=== PATIENT | female | born 1955 | race Hispanic/Latino ===

== ENCOUNTER 2019-01-20 19:19 | Inpatient (IN) | payer MEDICARE, OTHER ==
[~2019-01-20] VITALS: Ht 149.9 cm; Wt 102.2 kg
[2019-01-20] MEDS ORDERED: SODIUM CHLORIDE 0.9% 1000ML 1,000 ML IV STA (20:04)
--- NOTE | 2019-01-20 20:21 | NUR ---
REC'D PT IN RM 6 FROM THE LOBBY VIA W/C. SPOUSE AT SIDE. ASSISTED TO BED AND PLACED ON THE MONITOR. ABLE TO MAKE NEEDS KNOWN, BUT IS A LITTLE SLOW TO RESPOND
[2019-01-20 20:48] LABS: BASOPHILS % 0.3 % (0.0-1.0); EOSINOPHILS # (AUTO) 0.1 (0.0-0.4); EOSINOPHILS % 0.9 % (0.0-6.0); HEMATOCRIT 38.3 % (34.2-44.1); HEMOGLOBIN 12.1 g/dL (12.0-16.0); LYMPHOCYTES % 23.1 % (18.0-39.1); MEAN CORPUSCULAR HEMOGLOBIN 27.1 pg (28-32); MEAN CORPUSCULAR HGB CONC 31.6 g/dL (31-35); MEAN CORPUSCULAR VOLUME 85.9 fL (81-99); MONOCYTES # (AUTO) 0.9 (0.2-0.8); NEUTROPHILS # (AUTO) 8.8 (2.1-6.9); NEUTROPHILS % 68.2 % (38.7-80.0); PLATELET COUNT 396 x10e3/uL (140-360); RED BLOOD COUNT 4.46 x10e6/uL (3.6-5.1)
--- NOTE | 2019-01-20 20:50 | Diagnostic Imaging Report ---
EXAMINATION: Head CT without contrast. HISTORY:Nausea and loss of balance. COMPARISON:Report of MRA and MRI brain from 01/04/2014, prior images are not available for comparison at the time of interpretation. TECHNIQUE: Multidetector axial images were obtained from the foramen magnum to the vertex without contrast. The images were reconstructed using brain and bone algorithms. Thin section brain images were reformatted into coronal and sagittal planes. Dose modulation, iterative reconstruction, and/or weight based adjustment of the mA/kV was utilized to reduce the radiation dose to as low as reasonably achievable. Intravenous contrast: None IMAGE QUALITY: Acceptable. FINDINGS: Skull/scalp: No lytic or blastic. lesions. No surgical changes. Incidental nonspecific punctate radiopaque density in left temporal scalp may represent foreign body or calcifications. Parenchyma: Chronic encephalomalacia in left occipital lobe and posterior aspect of left temporal lobe from prior vascular insult in left HAND SLITTER territory. Focal hypodensity in left body and head of caudate that extends to the anterior limb of left internal capsule and putamen represents old lacunar infarct. Focal hypodensity in the anterior aspect of left thalamus, right caudate head and mid mirna represents old lacunar infarct. Nonspecific bilateral frontoparietal patchy white matter hypodensity are likely related to small vessel ischemic changes. No acute hemorrhage, mass or acute major vascular territorial infarct. Arteries: No density suggestive of thrombosis. Atherosclerotic calcification in bilateral carotid siphon. Dural sinuses: No abnormal density suggestive of thrombosis. Ventricles: Moderate compensated dilatation due to volume loss with exvacuodilatation of atrium and occipital horn of left lateral ventricle. No acute hydrocephalus. Extra-axial spaces: No abnormal density. Brain volume: Generalized age-related cerebral volume loss. Craniocervical junction: No mass, Chiari malformation, or basilar invagination. Sella: No mass. Paranasal/mastoid sinuses: Imaged portions unremarkable. IMPRESSION: 1. No acute intracranial abnormality, particularly no acute hemorrhage, mass or acute major vascular territorial infarct. 2. Chronic encephalomalacia in left HAND SLITTER vascular territory from prior vascular insult. 3. Multifocal chronic lacunar infarcts and supratentorial white matter small vessel ischemic changes as detailed above. 4. Generalized age-related cerebral volume loss. Signed by: Dr. Desiree Armijo M.D. on 01/20/2019 8:46 PM
[2019-01-20 21:04] LABS: ALANINE AMINOTRANSFERASE 26 IU/L (0-55); ALBUMIN 3.5 g/dL (3.5-5.0); ALBUMIN/GLOBULIN RATIO 0.7 (0.8-2.0); ALKALINE PHOSPHATASE 67 IU/L (40-150); ANION GAP 15.5 mmol/L (8-16); BLOOD UREA NITROGEN 21 mg/dL (7-26); BUN/CREATININE RATIO 17 (6-25); CALCIUM 9.8 mg/dL (8.4-10.2); CARBON DIOXIDE 26 mmol/L (22-29); CHLORIDE 100 mmol/L (98-107); CREATINE KINASE 33 IU/L (29-168); CREATININE, SERUM 1.23 mg/dL (0.57-1.11); EST GLOMERULAR FILTRATION RATE 44 ML/MIN (60-); GLUCOSE 150 mg/dL (74-118); LIPASE 40 U/L (8-78); POTASSIUM 4.5 mmol/L (3.5-5.1); SODIUM 137 mmol/L (136-145)
--- NOTE | 2019-01-20 21:07 | Diagnostic Imaging Report ---
EXAMINATION: CHEST SINGLE (PORTABLE) COMPARISON: None INDICATION: Nausea, loss of balance ^ERMD ORDER ^Y DISCUSSION: Frontal view of the chest obtained at 2037 hours. HEART AND MEDIASTINUM: The cardiomediastinal silhouette is unremarkable. LINES: None. LUNGS: The lungs are well inflated and clear. No pneumonia or pulmonary edema. PLEURA: No pleural effusion or pneumothorax. Mild eventration of the right diaphragm. BONES AND SOFT TISSUES: No focal osseous lesion. The soft tissues are normal. IMPRESSION: No acute cardiopulmonary disease. Signed by: Dr. Serge Love MD on 01/20/2019 9:03 PM
--- NOTE | 2019-01-20 21:30 | NUR ---
PT. ATTEMPTED TO AMBULATE DOWN THE VANCE WITH STAND-BY ASSIST OF 2; GAIT UNSTEADY AND WAS ASSISTED BACK TO BED AND BACK ON THE MONITOR
[2019-01-20 21:34] LABS: CLARITY,URINE HAZY (CLEAR); COLOR,URINE YELLOW (YELLOW)
[2019-01-20 21:39] LABS: LEUKOCYTE ESTERASE ,URINE NEGATIVE (NEGATIVE); NITRITE,URINE NEGATIVE (NEGATIVE)
[2019-01-20 21:40] LABS: KETONES,URINE NEGATIVE (NEGATIVE); URINE UROBILINOGEN 0.2 mg/dL (0.2 - 1)
[2019-01-20 21:41] LABS: BILIRUBIN,URINE NEGATIVE (NEGATIVE); PROTEIN,URINE DIPSTICK TRACE (NEGATIVE)
[2019-01-20] MEDS ORDERED: ASPIRIN 81 MG CHEW TAB PO ONE (21:45)
[2019-01-20 21:52] LABS: BACTERIA,URINE FEW /HPF; EPITHELIAL CELLS,URINE MODERATE /LPF; RBC,URINE 0-5 /HPF (0-5); WBC,URINE (MAN) 0-5 /HPF (0-5)
[2019-01-20] MEDS ORDERED: VERAPAMIL ER P100 MG (21:59)
[2019-01-20] MEDS ORDERED: CLOPIDOGREL75 MG (21:59)
[2019-01-20] MEDS ORDERED: GLIPIZIDE ER10 MG (21:59)
[2019-01-20] MEDS ORDERED: METFORMIN HCL500 MG (21:59)
[2019-01-20] MEDS ORDERED: DIOVAN160 MG (21:59)
[2019-01-20] MEDS ORDERED: OXYBUTYNIN CHLOR5 M1 (21:59)
[2019-01-20] MEDS ORDERED: LEVOCETIRIZINE D5 MG (21:59)
[2019-01-20] MEDS ORDERED: FLUOXETINE HCL20 M1 (21:59)
[2019-01-20] MEDS ORDERED: METOPROLOL SUCC25 MG (21:59)
--- OUTSIDE RECORDS SUMMARY | 2019-01-20 22:12 | XMS REPORT ---
Author [facility] Address Unknown Phone Unavailable Care Team Providers Care Belt Splicer Name Role Phone Barber POMPA Unavailable Unavailable Problems This patient has no known problems. Allergies, Adverse Reactions, Alerts This patient has no known allergies or adverse reactions. Medications This patient has no known medications. Results Test Description Test Time Test Comments Text Results Atomic Results Result Comments CHEST SINGLE (PORTABLE) 2019-01-20 21:01:00 [place] [address] Patient Name: AUREA PECK MR #: [id number] : 1955 Age/Sex: 63/F Req #: [id number] Adm Physician: Ordered by: JOAQUIM POMPA MD Report #: [id number] Location: ER Room/Bed: Procedure: [id number] DX/CHEST SINGLE (PORTABLE) Exam Date: Exam Time: REPORT STATUS: Signed EXAMINATION: CHEST SINGLE (PORTABLE) COMPARISON: None INDICATION: Nausea, loss of balance ERMD ORDER Y DISCUSSION: Frontal view of the chest obtained at 2037 hours. HEART AND MEDIASTINUM: The cardiomediastinal silhouette is unremarkable. LINES: None. LUNGS: The lungs are well inflated and clear. No pneumonia or pulmonary edema. PLEURA: No pleural effusion or pneumothorax. Mild eventration of the right diaphragm. BONES AND SOFT TISSUES: No focal osseous lesion. The soft tissues are normal. IMPRESSION: No acute cardiopulmonary disease. Signed by: Dr. Rohini Loev MD on 01/20/2019 9:03 PM Dictated By: ROHINI LOVE MD 02 Transcribed By: DINORAH on 01/20/192102 COPY TO: JOAQUIM POMPA MD CT BRAIN WO 2019-01-20 20:38:00 [place] [address] Patient Name: AUREA PECK MR #: [id number] : 1955 Age/Sex: 63/F Req #: [id number] Adm Physician: Ordered by: JOAQUIM POMPA MD Report #: [id number] Location: ER Room/Bed: Procedure: [id number] CT/CT BRAIN WO Exam Date: Exam Time: REPORT STATUS: Signed EXAMINATION: Head CT without contrast. HISTORY:Nausea and loss of balance. COMPARISON:Report of MRA and MRI brain from 01/04/2014, prior images are not available for comparison at the time of interpretation. TECHNIQUE: Multidetector axial images were obtained from the foramen magnum to the vertex without contrast. The images were reconstructed using brain and bone algorithms. Thin section brain images were reformatted into coronal and sagi ttal planes. Dose modulation, iterative reconstruction, and/or weight based adjustment of the mA/kV was utilized to reduce the radiation dose to as low as reasonably achievable. Intravenous contrast: None IMAGE QUALITY: Acceptable. FINDINGS: Skull/scalp: No lytic or blastic. lesions. No surgical changes. Incidental nonspecific punctate radiopaque density in left temporal scalp may represent foreign body or calcifications. Parenchyma: Chronic encephalomalacia in left occipital lobe and posterior aspect of left temporal lobe from prior vascular insult in left SKYDIVING INSTRUCTOR territory. Focal hypodensity in left body and head of caudate that extends to the anterior limb of left internal capsule and putamen represents old lacunar infarct. Focal hypodensity in the anterior aspect of left thalamus, right caudate head and mid mirna represents old lacunar infarct. Nonspecific bilateral frontoparietal patchy white matter hypodensity are likely related to small vessel ischemic changes. No acute hemorrhage, mass or acute major vascular territorial infarct. Arteries: No density suggestive of thrombosis. Atherosclerotic calcification in bilateral carotid siphon. Dural sinuses: No abnormal density suggestive of thrombosis. Ventricles: Moderate compensated dilatation due to volume loss with exvacuodilatation of atrium and occipital horn of left lateral ventricle. No acute hydrocephalus. Extra-axial spaces: No abnormal density. Brain volume: Generalized age-related cerebral volume loss. Craniocervical junction: No mass, Chiari malformation, or basilar invagination. Sella: No mass. Paranasal/mastoid sinuses: Imaged portions unremarkable. IMPRESSION: 1. No acute intracranial abnormality, particularly no acute hemorrhage, mass or acute major vascular territorial infarct. 2. Chronic encephalomalacia in left SKYDIVING INSTRUCTOR vascular territory from prior vascular insult. 3. Multifocal chr onic lacunar infarcts and supratentorial white matter small vessel ischemic changes as detailed above. 4. Generalized age-related cerebral volume loss. Signed by: Dr. Desiree Armijo M.D. on 01/20/2019 8:46 PM Dictated By: DESIREE ARMIJO MD 45 Transcribed By: DINORAH on 01/20/192045 COPY TO: JOAQUIM POMPA MD
[2019-01-20] MEDS ORDERED: HYDRALAZINE HCL 20 MG/ML VIAL IV STA (22:14)
--- NOTE | 2019-01-20 23:04 | NUR ---
REPORT CALLED TO YOCASTA KENNEDY FOR THIS PATIENT TO GO TO RM 112
[2019-01-20] MEDS ORDERED: HYDRALAZINE HCL 20 MG/ML VIAL IV PRN (23:15)
[2019-01-20] MEDS ORDERED: METFORMIN HCL 500 MG TAB PO SCH (23:38)
--- NOTE | 2019-01-20 23:47 | NUR ---
SPOKE TO DR. EISENBERG AT THIS TIME REGARDING PT CPAP. NEW ORDER RCV FOR CPAP PRN.
[2019-01-21] VITALS (9 sets, daily range): BP systolic 129–165; BP diastolic 59–74
--- NOTE | 2019-01-21 01:23 | NUR ---
CHANGE CAROTID DOPPLER TO ROUTINE ORDER PER DR. POMPA.
[2019-01-21 04:45] LABS: BASOPHILS # (AUTO) 0.1 (0.0-0.1); BASOPHILS % 0.3 % (0.0-1.0); EOSINOPHILS % 0.1 % (0.0-6.0); HEMATOCRIT 36.6 % (34.2-44.1); HEMOGLOBIN 11.5 g/dL (12.0-16.0); LYMPHOCYTES # (AUTO) 2.5 (1.0-3.2); LYMPHOCYTES % 16.4 % (18.0-39.1); MEAN CORPUSCULAR HEMOGLOBIN 27.2 pg (28-32); MEAN CORPUSCULAR HGB CONC 31.4 g/dL (31-35); MEAN CORPUSCULAR VOLUME 86.5 fL (81-99); MONOCYTES # (AUTO) 0.8 (0.2-0.8); MONOCYTES % 5.1 % (4.4-11.3); NEUTROPHILS # (AUTO) 11.9 (2.1-6.9); NEUTROPHILS % 77.6 % (38.7-80.0); PLATELET COUNT 333 x10e3/uL (140-360); RED BLOOD COUNT 4.23 x10e6/uL (3.6-5.1)
[2019-01-21 05:22] LABS: ALBUMIN 3.1 g/dL (3.5-5.0); ALBUMIN/GLOBULIN RATIO 0.7 (0.8-2.0); ANION GAP 17.2 mmol/L (8-16); CALCIUM 9.5 mg/dL (8.4-10.2); CREATINE KINASE 48 IU/L (29-168); CREATININE, SERUM 1.13 mg/dL (0.57-1.11); POTASSIUM 4.2 mmol/L (3.5-5.1)
--- NOTE | 2019-01-21 07:04 | NUR ---
SPOKE TO DR. ALBERT AT THIS TIME REGARDING CONSULT. NO NEW ORDER.
[2019-01-21] MEDS ORDERED: DEXTROSE 50% SYRINGE 50 ML IV PRN ×2 (07:30→08:45)
[2019-01-21 07:39] LABS: PLATELET ESTIMATE ADEQUATE; PLATELET MORPHOLOGY COMMENT RARE EDTA CLUMPING; RBC MORPHOLOGY COMMENT NORMAL
[2019-01-21 07:40] LABS: GIANT PLATELETS RARE; LARGE PLATELETS FEW
[2019-01-21] MEDS ORDERED: METOPROLOL SUCCINATE 25 MG TAB XL PO SCH (09:00)
[2019-01-21] MEDS: VERAPAMIL 100 MG PO SCH (09:00)
[2019-01-21] MEDS ORDERED: GLIPIZIDE 10 MG SCH (09:00)
[2019-01-21] MEDS ORDERED: VERAPAMIL HCL 100 MG SCH (09:00)
[2019-01-21] MEDS ORDERED: ASPIRIN 81 MG ENTERIC COATED PO SCH (09:00)
[2019-01-21] MEDS: CLOPIDOGREL BISULFATE 75 MG TAB PO SCH (09:55)
[2019-01-21] MEDS: METOPROLOL SUCCINATE 25 MG TAB XL PO SCH (09:55)
[2019-01-21] MEDS: FLUOXETINE HCL 20 MG CAP PO SCH (09:55)
[2019-01-21] MEDS: VALSARTAN 160 MG TAB PO SCH (09:55)
[2019-01-21] MEDS: GLIPIZIDE 5 MG TAB ER PO SCH (09:55)
[2019-01-21] MEDS: LORATADINE 10 MG TAB PO SCH (09:55)
[2019-01-21] MEDS: OXYBUTYNIN CHLORIDE XL 5 MG TAB PO SCH (10:03)
[2019-01-21] MEDS: INSULIN LISPRO 100 UNIT/1 ML 3ML VIAL SQ SCH ×3 (11:30→20:56)
[2019-01-21 12:55] LABS: CREATINE KINASE 55 IU/L (29-168)
--- NOTE | 2019-01-21 13:14 | Diagnostic Imaging Report ---
Exam: Brain MRI without IV contrast History: Ataxia, dizziness, weakness, hypertension, diabetes, CVA Comparison studies: Head CT 01/20/2019 Technique: Sagittal and axial T2 FS, axial DWI, axial T2*GRE, axial T1 FLAIR and axial coronal T2 FLAIR. Intravenous contrast: None Findings: Scalp: Normal in signal. No masses. Bone marrow: Normal in signal intensity. Brain sulci: Appropriate for age. Ventricles: Ex vacuo dilatation of the left ventricular trigone secondary to chronic left HAND MARKER infarct described below. Mild/moderate compensatory dilatation of the right lateral and third ventricles. Extra axial spaces: No mass, no fluid collection. Parenchyma: Small focal acute nonhemorrhagic ischemia in the posterior limb of the right internal capsule with T2 FLAIR hyperintensity and restricted diffusion. Unchanged chronic cortical/subcortical insult in the left HAND MARKER vascular territory with encephalomalacia and gliosis throughout the left occipital lobe, along the left medial temporal lobe and in the hippocampus. There are multiple chronic lacunar infarcts which include: left frontal still radiata, left thalamus, in the genu of the left internal capsule, within the left putamen, within the head of the right caudate nucleus and in the left paramedian mirna. A few scattered and confluent-periventricular T2 FLAIR hyperintensities are nonspecific most compatible with chronic microvascular ischemic changes. No mass or hemorrhage. Suprasellar region: No abnormalities. Craniocervical junction: Patent foramen magnum. No Chiari malformation. Vessels: Normal flow-voids in the arteries and sinuses. IMPRESSION: Small acute nonhemorrhagic infarct in the posterior limb of the right internal capsule. Chronic findings: 1. Moderate generalized cerebral volume loss. 2. Chronic left HAND MARKER infarct. 3. Moderate supratentorial chronic microvascular ischemic changes with multiple chronic lacunar infarcts as described. Findings discussed YOCASTA Bolden at 1:10 PM on 01/21/2019. Signed by: Dr. William Maurice M.D. on 01/21/2019 1:11 PM
--- NOTE | 2019-01-21 13:26 | NUR ---
spoke with dr araujo re: radiology report, no new orders noted at this time,
--- NOTE | 2019-01-21 15:10 | History and Physical ---
CHIEF COMPLAINT: Ataxia. HISTORY OF PRESENT ILLNESS: A 63-year-old female, morbidly obese with uncontrolled type 2 diabetes, very noncompliant, hypertension, who comes into the ED with underlying ataxia that began yesterday while she was at a local family friend gathering. According to the , the patient woke, was ambulating initially early yesterday morning normal, but later in the day, he noticed that she was deviating toward the right and felt like she was "drunk." The patient has had a history of CVAs in the past as well. does endorse that the is very noncompliant with her diabetic medications. She does endorse eating random foods and is not on a diabetic diet. She denies any facial drooping, slurred speech, no weakness anywhere. 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 Denies any dizziness, lightheadedness or any blurry vision. The patient seen and evaluated at bedside on the medical floor. Currently, she is doing well with no other issues. REVIEW OF SYSTEMS: Pertinent positives ataxia. Pertinent negatives: Denies any chest pain, palpitation, nausea, vomiting, diarrhea, dysuria, hematuria, frequency, urgency, lightheadedness, dizziness, abdominal pain, headaches, shortness of breath, cough, congestion, fever, or any other complaints. The rest of 14-point review of systems have been reviewed with the patient and are negative. ALLERGIES: NO KNOWN DRUG ALLERGIES. HOME MEDICATIONS: 1. Plavix 75 mg. 2. Fluoxetine 20 mg daily. 3. Glipizide 10 mg extended release daily. 4. Levocetirizine 5 mg at bedtime. 5. Metformin 500 mg p.o. b.i.d. 6. Metoprolol ER 25 mg daily. 7. Oxybutynin 5 mg daily. 8. Valsartan 160 mg daily. 9. Verapamil 100 mg every 24 hours. PAST MEDICAL HISTORY: She has uncontrolled type 2 diabetes, hypertension, history of depression, history of CVAs in the past. PAST SURGICAL HISTORY: Reports none. FAMILY HISTORY: Hypertension, diabetes. SOCIAL HISTORY: No drugs. No alcohol. Does not smoke. Good social support. She is . PHYSICAL EXAMINATION: VITAL SIGNS: Temperature is 97.4, pulse 74, respiratory rate 17, blood pressure 129/59, and pulse ox 100% on room air. GENERAL: In no acute distress. Alert, oriented x3. Cooperative on examination. HEENT: Head is normocephalic and atraumatic. Eyes; pupils are equal, round, and reactive to light bilaterally. Extraocular movements are intact bilaterally. NECK: Supple. Good range of motion. Throat, no evidence of erythema or exudate in the posterior pharynx. Has poor dentition. PULMONARY: Clear to auscultation bilaterally. No wheezing, rales, or rhonchi. No crackles appreciated. CARDIOVASCULAR: Positive S1, S2. No murmurs, rubs, or gallops appreciated. ABDOMEN: Soft, nondistended, and nontender to palpation. Bowel sounds present. MUSCULOSKELETAL: There is no evidence of any muscle deficits on examination. Strength is 5/5 throughout. NEUROLOGICAL: No facial droop. No slurred speech. Cranial nerves 2 through 12 grossly intact. She is moving all extremities. No evidence of any weakness. SKIN: Intact. Warm to touch. Good cap refill. PSYCHIATRIC: Normal affect and mood. EXTREMITIES: No edema. Good range of motion throughout. LAB FINDINGS: Show white count 15.2, hemoglobin 11.5, hematocrit is 36.6, platelets of 333. Chemistry; sodium 136, potassium 4.3, chloride 100, bicarb 23, anion gap of 17, BUN is 18, creatinine 1.1, glucose is 241. LFTs were normal. Troponins were negative. BNP is 91. Albumin 3.1. Lipase was 40. Urinalysis was negative. Microbiology, none. IMAGING STUDIES: Chest x-ray found to be negative. CT brain shows no acute intracranial abnormality and no acute hemorrhage, mass or acute major infarct. There is chronic encephalomalacia in the left SALES TEAM RECRUITER vascular territory from prior vascular insult. There is multifocal chronic lacunar infarcts and supratentorial white matter small-vessel ischemic changes. Nothing acute seen. MRI of the brain, carotid ultrasound and 2D echo are all pending. IMPRESSION: 1. Ataxia concerning for acute cerebrovascular. 2. Uncontrolled type 2 diabetes, hypertension. 3. Morbid obesity. 4. Hyperlipidemia. PLAN: At this time, the patient is on aspirin as well as a statin. MRI of the brain has been ordered as well as carotid ultrasound and 2D echo. Neurology was consulted as well. PT, OT to eval and treat. We will get a lipid panel, A1c, TSH. In relation to her diabetes, we are going to put on insulin sliding scale, get hemoglobin A1c. Blood pressure is relatively controlled, resume same home medications with no changes at this time. Diet and exercise discussed with underlying obesity. We will put on Lovenox for DVT prophylaxis. We will otherwise follow with the recommendation by the consultants. MD ALLISON Heredia/JAKE /[id number]
[2019-01-21] MEDS: ATORVASTATIN 40 MG TAB PO SCH (20:51)
[2019-01-21] MEDS: HEPARIN SOD (PORCINE) 5,000 UNIT/ML VIAL SC SCH (20:59)
[2019-01-21] MEDS ORDERED: NON-FORMULARY MEDICATION (Levocetirizine Dihydrochloride 5 MG) SCH (21:00)
[2019-01-21] MEDS ORDERED: ATORVASTATIN 20 MG TAB PO SCH (21:00)
[2019-01-22] VITALS (8 sets, daily range): BP systolic 136–189; BP diastolic 65–93
--- NOTE | 2019-01-22 01:53 | Consultation ---
DATE OF CONSULTATION: 01/21/2019 Neurology Consult Note HISTORY OF PRESENT ILLNESS: Ms. Miguel is a 63-year-old right-hand dominant woman with an extensive past medical history, including multiple vascular risk factors, admitted to [facility] on January 20, 2019 with a stroke. Sometime between 1830 and 1900 on the day of admission, the patient was noted by her to have difficulty walking. Specifically, the patient's reports Ms. Miguel was "staggering" and "holding onto things" while ambulating. Ms. Miguel reports her gait impairment was secondary to loss of sensation in the left leg. She does not report weakness in the left leg. The patient does not report a new or worsening visual field cut or other disturbance, dysarthria, aphasia, dizziness, or confusion associated with the above described numbness of the left leg as well as poor balance and gait impairment. Shortly after the above symptoms began, the patient became diaphoretic. Ms. Miguel experienced nausea and vomiting as well. At this time, the patient's brought her to the emergency center at [facility] for further evaluation of her symptoms. Upon arrival in the emergency center, the patient was afebrile with a blood pressure of 197/97 mmHg and a pulse is 74 beats per minute. The patient's neurological examination was significant for cerebellar findings present. Finger-nose test abnormal. Abnormal gait. Otherwise, no focal deficits were noted. While in the emergency center, the patient underwent a CT of the brain without contrast. This study revealed areas of remote ischemia. However, there is no evidence of recent large territorial ischemia or hemorrhage. Ms. Miguel was not treated with intravenous thrombolytics for reasons, which are unknown. The patient was admitted to [facility] under observation status for further evaluation and treatment of her symptoms. On July 27, 2012, the patient experienced her 1st stroke. Residual deficits from the stroke include blurred vision in the right eye as well as mild cognitive impairment. Shortly after establishing care with their neurologist, Dr. Bland, a repeat MRI of the brain without contrast was performed. It was determined Ms. Miguel had experienced other strokes since her 1st stroke in July of 2012. As the patient was asymptomatic at the time of the strokes, the time of their occurrence is unknown. Ms. Miguel takes Plavix 75 mg by mouth daily for stroke prophylaxis. The patient reports compliance with this medication as prescribed. She has not missed any doses of this medication recently. REVIEW OF SYSTEMS: Nausea, vomiting, mild cognitive impairment, blurred vision affecting the right eye (chronic), numbness of the left leg, impairment of balance and gait, diaphoresis, occasional heartburn. Otherwise, a 12-point review of systems is negative. PAST MEDICAL HISTORY: Hypertension, hyperlipidemia, diabetes mellitus type 2, prior history of cardiac arrhythmia, CKD stage IIIA, depression, prior history of a single seizure, multiple prior strokes with a residual deficit of blurred vision in the right eye, obstructive sleep apnea on CPAP, and anemia. PAST SURGICAL HISTORY: Total hysterectomy. PAST HOSPITALIZATIONS: Surgeries/procedures as listed, stroke, irregular heartbeat. FAMILY MEDICAL HISTORY: The patient's paternal and maternal grandparents are . Their medical histories are unknown. The patient's father is from coronary artery disease with a myocardial infarction. Ms. Miguel's mother is from a blood cancer. The patient has no siblings. She has no children. SOCIAL HISTORY: Ms. Miguel is . She is retired. The patient does not report current or prior tobacco or recreational drug use. Ms. Miguel reports rare alcohol use. HOME MEDICATIONS: Plavix 75 mg by mouth daily, metoprolol 25 mg by mouth daily, Diovan 160 mg by mouth daily, verapamil 100 mg by mouth daily, glipizide 10 mg by mouth daily, metformin 500 mg by mouth twice daily, fluoxetine 20 mg by mouth daily, levocetirizine 5 mg by mouth at bedtime daily, and oxybutynin 5 mg by mouth daily. HOSPITAL MEDICATIONS: Atorvastatin, Plavix, Pepcid, fluoxetine, glipizide, heparin, hydralazine, Humalog sliding scale, loratadine, metoprolol, verapamil, oxybutynin, and valsartan. ALLERGIES: NO KNOWN DRUG ALLERGIES. NO KNOWN FOOD ALLERGIES. NO KNOWN ALLERGIES TO LATEX. NO KNOWN ALLERGIES TO IODINE OR OTHER CONTRAST MATERIALS. PHYSICAL EXAMINATION: VITAL SIGNS: Height 59 inches, weight 226 pounds, BMI 45.6 kg/m2, blood pressure 130/60 mmHg, pulse 89 beats per minute, respiratory rate 18 breaths per minute, and oxygen saturation 99% on room air. GENERAL: The patient is awake and alert, does not appear distressed. Morbidly obese. HEENT: Normocephalic and atraumatic. Pupils are equal, round, and reactive to light. Moist mucous membranes. NECK: Supple. No appreciable thyromegaly. No appreciable carotid bruits. CARDIOVASCULAR: S1, S2, regular rate and rhythm. No murmurs, rubs, or gallops. RESPIRATORY: Clear to auscultation bilaterally. No wheezes, rhonchi, or rales. EXTREMITIES: The skin is warm and dry. No clubbing, cyanosis, or edema. The posterior tibial and dorsalis pedis pulses are 1+ and symmetric. SKIN: No rashes or lesions. NEUROLOGIC: Memory/Attention: The patient is awake and alert, oriented to person, place, time, and situation. Cranial Nerves: Cranial nerve I - not tested. Cranial nerves II, III, IV, and - pupils are equal and round, reactive briskly to light (from 4 mm to 2 mm). Extraocular movements intact. No nystagmus. Cranial nerve V - sensation to light touch and pinprick is intact in the bilateral V1 through V3 distributions. Strength in the temporalis and masseter muscles are within normal limits. Cranial nerve VII - the face is symmetric as are all facial movements. Strength is within normal limits. Cranial nerve VIII - hearing is intact to finger rub bilaterally. Cranial nerves IX, X - the soft palate elevates equally and symmetrically. Cranial nerve XI - normal strength of the bilateral sternocleidomastoid and trapezius muscles. Cranial nerve XII - the tongue protrudes in the midline and moves symmetrically from [id number]-gz-tine. Strength: Bulk is normal. Strength is 5/5 in the bilateral deltoids, biceps, triceps, wrist flexors and extensors, finger flexors and extensors, intrinsic hand muscles, hip flexors, knee flexors and extensors, ankle dorsiflexion and plantar flexion, and intrinsic foot muscles except as follows: The left leg flexors are 4+/5. Tone is normal. DTRs: Deep tendon reflexes are 2+ and symmetric at the triceps, biceps, brachioradialis, and patellas. Deep tendon reflexes are 1+ and symmetric at the Achilles. Plantar responses are flexor bilaterally. Sensation: Sensation is diminished to light touch and pinprick over the left arm and left leg. Cerebellar: Brfiyg-wexu-ftmkkn and heel-montenegro movements are ataxic on the left, out of proportion to weakness. Gait: Deferred. Speech: Spontaneous speech is normal without appreciable dysarthria or aphasia. Repetition is intact. Involuntary Movements: None. Pronator Drift: Positive in the right arm and left leg. LABORATORY DATA: The most recent comprehensive metabolic panel is significant for an anion gap of 17.2, elevated creatinine of 1.13, decreased GFR of 49, elevated serum glucose of 241, albumin of 3.1, globulin of 4.2, and albumin to globulin ratio of 0.7. Cardiac enzymes are negative x3. B-natriuretic peptide 91.9. Lipase 40. Serum glucoses have ranged from 141 to 241 in the past 24 hours. The CBC with differential and platelets reveals a white blood cell count of 15.28 with 77.6% neutrophils, 16.4% lymphocytes, 5.1% monocytes, 0.1% eosinophils, and 0.3% basophils. The hemoglobin and hematocrit are 11.5 and 36.6, respectively. The platelet count is 333. A urinalysis revealed hazy urine with trace protein. DIAGNOSTIC STUDIES: Electrocardiogram on 01/20/2019: Normal sinus rhythm at 65 beats per minute. Left axis deviation. Chest x-ray on 01/20/2019: No acute cardiopulmonary disease. CT of the brain without contrast on 01/20/2019: On my review, there is chronic encephalomalacia in the left occipital lobe and posterior aspect of the left temporal lobe from a prior ischemic stroke in the left posterior cerebral artery distribution. There are lacunar infarcts in the left body and head of the caudate extending to the anterior limb of the left internal capsule and putamen. Another lacunar infarct is seen in the anterior aspect of the left thalamus, right caudate head, and mid mirna. Cerebral volumes are appropriate for age. There are findings compatible with [id number]-iutzakwl chronic small-vessel ischemic disease. Echocardiogram on 01/21/2019: Ejection fraction 55% to 60%. There is impairment of left ventricular diastolic function. The left atrium is moderately dilated. There is trace mitral regurgitation. There is mild tricuspid regurgitation. Bilateral carotid artery ultrasound with Doppler on 01/21/2019: There is atherosclerosis without hemodynamically significant stenosis at the bilateral carotid bulbs, bilateral carotid bifurcations, in the left internal carotid artery. Flow is antegrade in the bilateral vertebral arteries. MRI of the brain without contrast on 01/21/2019: On my review, there is an acute ischemic stroke in the posterior limb of the right internal capsule. There is chronic ischemia with encephalomalacia in the left posterior cerebral artery distribution. Cerebral volumes are appropriate for age. There are scattered and confluent T2/FLAIR hyperintense foci in the periventricular white matter compatible with moderate chronic small vessel ischemic disease. ASSESSMENT AND PLAN: Ms. Miguel is a 63-year-old right-hand dominant woman with multiple vascular risk factors, admitted to [facility] on January 20, 2019 with an ischemic stroke in the posterior limb of the right internal capsule. The patient has undergone a thorough neurological examination with findings detailed above. Her laboratory data and other diagnostic studies were reviewed and are documented above. RECOMMENDATIONS: Are as follows: 1. A lipid panel and hemoglobin A1c have been ordered to complete a stroke evaluation. Those results are pending. 2. The patient will be put on telemetry to evaluate for a paroxysmal cardiac arrhythmia. 3. Discontinue aspirin. Treatment with dual anti-platelet therapy puts the patient at a higher risk for bleeds. Treatment with Plavix 75 mg by mouth daily for stroke prophylaxis will be continued. Once the results of the other studies are available, the patient's medication for stroke prophylaxis may be altered. 4. Permissive hypertension should be allowed for 24 to 48 hours post stroke. However, as there is no hemodynamically significant stenosis of the extracranial blood vessels, Ms. Miguel's blood pressure may be normalized. Her goal blood pressure is less than 140/90 mmHg. Continue with current antihypertensive medications. Monitor vital signs per unit protocol and adjust medications as appropriate. 5. The patient's goal total cholesterol is less than 200 with an LDL of less than 70. Follow up the results of the lipid panel. In the interim, continue treatment with atorvastatin 40 mg by mouth at bedtime daily. 6. The patient's goal hemoglobin A1c is less than 7.0. Follow up the results of the hemoglobin A1c. Continue the patient's home oral hypoglycemic medications. Tight glycemic control is recommended, while the patient is hospitalized. 7. Continue CPAP for obstructive sleep apnea. 8. Physical Therapy has evaluated the patient and recommends inpatient rehabilitation for disposition. Speech therapy will be ordered. 9. GI prophylaxis with Pepcid 20 mg by mouth twice daily with meals. DVT prophylaxis with heparin 5000 units subcutaneously every 12 hours. 10. Defer treatment of the remaining medical comorbidities to the primary and other services following the patient. Thank you for this consultation. I will continue to follow the patient, while she remains in the hospital. TIME SPENT: 70 minutes. Milana Breen MD CP/JAKE /[id number]
[2019-01-22 06:39] LABS: BASOPHILS % 0.3 % (0.0-1.0); EOSINOPHILS # (AUTO) 0.1 (0.0-0.4); EOSINOPHILS % 0.9 % (0.0-6.0); HEMATOCRIT 33.9 % (34.2-44.1); HEMOGLOBIN 10.8 g/dL (12.0-16.0); LYMPHOCYTES # (AUTO) 4.4 (1.0-3.2); MEAN CORPUSCULAR HEMOGLOBIN 27.5 pg (28-32); MEAN CORPUSCULAR HGB CONC 31.9 g/dL (31-35); MEAN CORPUSCULAR VOLUME 86.3 fL (81-99); MONOCYTES # (AUTO) 0.9 (0.2-0.8); MONOCYTES % 7.6 % (4.4-11.3); NEUTROPHILS # (AUTO) 6.3 (2.1-6.9); NEUTROPHILS % 53.7 % (38.7-80.0); PLATELET COUNT 379 x10e3/uL (140-360); RED BLOOD COUNT 3.93 x10e6/uL (3.6-5.1); RED CELL DISTRIBUTION WIDTH 14.3 % (11.7-14.4)
[2019-01-22 07:10] LABS: ALBUMIN/GLOBULIN RATIO 0.8 (0.8-2.0); CALCIUM 9.4 mg/dL (8.4-10.2); CHOL/HDL RATIO 2.9 (3.0-3.6); CREATININE, SERUM 1.17 mg/dL (0.57-1.11)
[2019-01-22] MEDS: INSULIN LISPRO 100 UNIT/1 ML 3ML VIAL SQ SCH ×4 (07:30→20:18)
[2019-01-22] MEDS: VERAPAMIL 100 MG PO SCH (09:00)
[2019-01-22] MEDS: VALSARTAN 160 MG TAB PO SCH (09:30)
[2019-01-22] MEDS: FLUOXETINE HCL 20 MG CAP PO SCH (09:30)
[2019-01-22] MEDS: OXYBUTYNIN CHLORIDE XL 5 MG TAB PO SCH (09:30)
[2019-01-22] MEDS: HEPARIN SOD (PORCINE) 5,000 UNIT/ML VIAL SC SCH (09:30)
[2019-01-22] MEDS: GLIPIZIDE 5 MG TAB ER PO SCH (09:30)
[2019-01-22] MEDS: CLOPIDOGREL BISULFATE 75 MG TAB PO SCH (09:30)
[2019-01-22] MEDS: LORATADINE 10 MG TAB PO SCH (09:30)
[2019-01-22] MEDS: FAMOTIDINE 20 MG TAB PO SCH ×2 (09:30→17:30)
[2019-01-22] MEDS: METOPROLOL SUCCINATE 25 MG TAB XL PO SCH (12:00)
--- NOTE | 2019-01-22 14:05 | Progress Note ---
DATE: 01/22/2019 Medicine Progress Note SUBJECTIVE: The patient seems very confused today on examination. MRI of the brain consistent with acute CVA. She is still very ataxic according to CT. PHYSICAL EXAMINATION: VITAL SIGNS: Temperature is 97.3, pulse 67, respiratory rate is 20, blood pressure 139/72, and pulse ox 99% on room air. GENERAL: Not in acute distress. Alert and oriented x1. Today, very confused. HEENT: Head is normocephalic and atraumatic. Eyes, pupils are equal, round, and reactive to light bilaterally. Extraocular movements intact bilaterally. Neck is supple. Good range of motion. Throat, no evidence of any erythema, exudates in the posterior pharynx. Has poor dentition. PULMONARY: Clear to auscultation bilaterally. No wheezing, rales, or rhonchi. No crackles appreciated. CARDIOVASCULAR: Positive S1 and S2. No murmurs, rubs, or gallops appreciated. ABDOMEN: Soft, nondistended, and nontender to palpation. Bowel sounds present. MUSCULOSKELETAL: Strength is 5/5 throughout. No evidence of any muscle deficits on examination. No weakness appreciated. NEUROLOGIC: ataxia on examination. SKIN: Intact. Warm to touch. No capillary refill. PSYCHIATRIC: Normal affect and mood. EXTREMITIES: No edema. Good range of motion throughout. LABORATORY FINDINGS: Show white count 11.7, hemoglobin 10.8, hematocrit is 34, and platelets of 379. Chemistry; sodium 138, potassium 4, chloride 101, bicarb 28, BUN 18, anion gap of 13, creatinine is 1.1, and glucose is 121. LFTs were normal. Troponins were negative. Albumin was 3. LDL was 80. Hemoglobin A1c was 7.1. IMAGING STUDIES: MRI of the brain showed small acute nonhemorrhagic infarct in the posterior limb of the right internal capsule. Carotid ultrasound preliminary shows no evidence of stenosis but pending final read. A 2D echo is pending final read. IMPRESSION: 1. Acute cerebrovascular accident seen on MRI with ataxia. 2. Uncontrolled type 2 diabetes. 3. Hypertension. 4. Morbid obesity. 5. Hyperlipidemia. 6. Metabolic encephalopathy. 7. Medical noncompliance. PLAN: At this time, continue with aspirin, statin. Neurology is consulted and following closely. Carotid ultrasound and echo are pending final read. The patient is very ataxic. It seems like the patient will probably benefit from an outpatient PT/OT, but we will need to discuss this with neurologist, which I discussed this with the nurse as well. Followup through with Neurology recommendations on that. From a diabetes standpoint, her A1c us 7.1. Her glucose is controlled. We will monitor closely. Blood pressure stable. Discussed diet, exercise, and modifications. She is on Lovenox for DVT prophylaxis. Hopefully, the patient can be discharged in the next 1 to 2 days. MD ALLISON Heredia/HORTENCIAL /[id number]
--- NOTE | 2019-01-22 15:00 | NUR ---
CASE MANAGEMENT ASSESSMENT Business Risk Analyst to bedside to discuss plan of care with patient/family. CM/SW role and care transitions discussed. Anticipated discharge plan discussed along with duration of care. CM/SW discussed patients right to make decisions in care. CM/SW work hours given. Spoke with pt and her Yossi at bedside Patient lives: with Admit/Transfer: thru ED Hospital/ER visits since last admit: 0; last hospitalization in 2011 POA/Emergency contact: Yossi Turner [phone] Current/Previous Home Health: none PCP/Follow-up Care: Dr. Pascal - PCP; advised pt to follow up with her MD within 5-7 days of discharge. Current/Previous DME: CPAP Medications (referring to index hospitalization or the first time you were in the hospital) a. Were changes made in your medications when you were in the hospital on [date of index hospitalization]? n/a b. Did you understand the changes? n/a c. Were you able to obtain your new medications right away? n/a d. Were you able to take your medications like the doctor wanted you to? n/a e. Did the hospital give you an accurate, easy to understand list of medications when you left? n/a Scale of 1-10 how comfortable does patient feel with disease management in outpatient settin Other Services: none Employment Status: retired Areas of Concerns: recent CVA Referral Needs: inpatient rehab Spoke to Dr. Posey and informed him of PT's recommendation for inpatient rehab. He gave order for inpatient eval. Education Needs: safety, medical management IMM/JOSHI given and signed (if applicable): on admit Goal for discharge: inpatient rehab Gave pt's a list of inpatient rehabs. He stated that he will go look at a few places today and give choice tomorrow. CM/SW left business card at the bedside with contact information. Name and number was also written on the patients whiteboard. Patient verbalized understanding of discussion. CM will follow-up with ongoing discharge and transition of care needs.
[2019-01-22] MEDS: APIXABAN 5 MG TABLET PO SCH (17:30)
[2019-01-22] MEDS: ATORVASTATIN 40 MG TAB PO SCH (20:17)
[2019-01-23] VITALS (7 sets, daily range): BP systolic 121–147; BP diastolic 65–71
--- NOTE | 2019-01-23 07:26 | NUR ---
Rcvd patient in report this am. Patient is awake in bed. Family at bedside. Patient changed at this time.
[2019-01-23] MEDS: INSULIN LISPRO 100 UNIT/1 ML 3ML VIAL SQ SCH ×4 (08:00→20:57)
[2019-01-23] MEDS: VERAPAMIL 100 MG PO SCH (09:00)
[2019-01-23] MEDS: APIXABAN 5 MG TABLET PO SCH ×2 (09:07→17:06)
[2019-01-23] MEDS: VALSARTAN 160 MG TAB PO SCH (09:07)
[2019-01-23] MEDS: GLIPIZIDE 5 MG TAB ER PO SCH (09:07)
[2019-01-23] MEDS: OXYBUTYNIN CHLORIDE XL 5 MG TAB PO SCH (09:07)
[2019-01-23] MEDS: LORATADINE 10 MG TAB PO SCH (09:07)
[2019-01-23] MEDS: FAMOTIDINE 20 MG TAB PO SCH ×2 (09:07→17:06)
[2019-01-23] MEDS: METOPROLOL SUCCINATE 25 MG TAB XL PO SCH (09:08)
[2019-01-23] MEDS: FLUOXETINE HCL 20 MG CAP PO SCH (09:08)
--- NOTE | 2019-01-23 11:50 | Progress Note ---
DATE: Medicine Progress Note SUBJECTIVE: The patient is still very ataxic on examination. She is alert and oriented today on examination with no issues. She is in the process of going into inpatient rehab, which I discussed this with the Case Management yesterday. No overnight events. PHYSICAL EXAMINATION: VITAL SIGNS: Temperature 97.1, pulse 67, respiratory rate is 18, blood pressure 142/71, pulse ox 95% on room air. GENERAL: Not in acute distress. Alert and oriented x3. Cooperative on examination. HEENT: Head is normocephalic and atraumatic. Eyes; pupils are equal, round, and reactive to light bilaterally. Extraocular movements are intact bilaterally. Throat, no evidence of erythema or exudates in the posterior pharynx. Has poor dentition. NECK: Supple. Good range of motion. PULMONARY: Clear to auscultation bilaterally. No wheezing, no rales, no rhonchi, no crackles appreciated. CARDIOVASCULAR: Positive S1, S2. No murmurs, rubs, or gallops appreciated. ABDOMEN: Soft, nondistended, and nontender to palpation. Bowel sounds present. MUSCULOSKELETAL: Strength is 5/5 throughout. No evidence of any muscle deficits on examination. No weakness appreciated. NEUROLOGICAL: Cranial nerves II through XII grossly intact. The patient is ataxic upon ambulation. SKIN: Intact. Warm to touch. Good cap refill. PSYCHIATRIC: Normal affect and mood. EXTREMITIES: No edema. Good range of motion throughout. LABORATORY DATA: White count is 11.7, hemoglobin 10.8, hematocrit 34, and platelets of 379. Chemistry was found to be normal. IMAGING STUDIES: None new today. IMPRESSION: 1. Acute cerebrovascular accident seen on MRI with underlying ataxia. 2. Uncontrolled type 2 diabetes. 3. Hypertension. 4. Morbid obesity. 5. Hyperlipidemia. 6. Metabolic encephalopathy, resolved. 7. Medical noncompliance. PLAN: Continue with aspirin and statin. Neurology is following very closely. Waiting on the final read. Pending echo and carotid ultrasound. Working on inpatient rehab acceptance. Discussed with Case Management. Continue with same plan of care. Work with PT and OT while here in the hospital. MD ALLISON Heredia/MODL /[id number]
--- NOTE | 2019-01-23 12:00 | NUR ---
Patient is AAOx3. Patient lung [place] clear to auscultation. Bowel sounds present x4. Patient noted to have an unsteady gait when ambulating with therapy. No extremity weakness noted. Rolling walker at bedside. No c/o pain
--- NOTE | 2019-01-23 15:25 | NUR ---
CHANGED TO INPT STATUS IMM EXPLAINED TO PT, SIGNED BY PT AND ON CHART COPY TO PT IN CARE TRANSITION FOLDER
--- NOTE | 2019-01-23 16:21 | NUR ---
PT CHOOSE [facility] FAXED [facility]INICALS [phone]. PUT CHOICE FORM IN CHART.
[2019-01-23] MEDS: ATORVASTATIN 40 MG TAB PO SCH (20:57)
--- NOTE | 2019-01-23 23:55 | NUR ---
PT AAOX3 C/O FLUSHING AND SWEATING. CHECK BLOOD GLUCOSE READING 48. ORANGE JUICE AND CRACKERS GIVEN. RECHECKED BLOOD GLUCOSE NOW READING 136. NO OTHER COMPLAINTS VOICED.
[2019-01-24 04:00] VITALS: BP 133/70
--- NOTE | 2019-01-24 07:20 | NUR ---
Rcvd patient report this am. Patient is asleep in bed at this time. No s/s of distress noted
[2019-01-24 08:15] VITALS: BP 131/62
[2019-01-24] MEDS: FAMOTIDINE 20 MG TAB PO SCH ×2 (08:15→17:01)
[2019-01-24] MEDS: INSULIN LISPRO 100 UNIT/1 ML 3ML VIAL SQ SCH ×4 (08:16→21:00)
[2019-01-24] MEDS: GLIPIZIDE 5 MG TAB ER PO SCH (08:31)
[2019-01-24] MEDS: OXYBUTYNIN CHLORIDE XL 5 MG TAB PO SCH (08:31)
[2019-01-24] MEDS: VALSARTAN 160 MG TAB PO SCH (08:31)
[2019-01-24] MEDS: LORATADINE 10 MG TAB PO SCH (08:31)
[2019-01-24] MEDS: FLUOXETINE HCL 20 MG CAP PO SCH (08:31)
[2019-01-24] MEDS: APIXABAN 5 MG TABLET PO SCH ×2 (08:31→17:01)
[2019-01-24] MEDS: METOPROLOL SUCCINATE 25 MG TAB XL PO SCH (08:36)
[2019-01-24] MEDS: VERAPAMIL 100 MG PO SCH (09:00)
[2019-01-24 09:42] VITALS: BP 131/62
--- NOTE | 2019-01-24 10:17 | NUR ---
MAYITO FROM [facility] [phone] CALLED AND STATED SHE WILL FAX ME A FORM TO COMPLETE FOR FUNCTIONAL LEVELS AND THEN SUBMIT FOR APPROVAL.
--- NOTE | 2019-01-24 10:41 | NUR ---
WITH HELP FROM NURSE ABLE TO GET FORM COMPLETED AND FAXED TO [phone]
[2019-01-24 12:03] VITALS: BP 125/60
--- NOTE | 2019-01-24 13:46 | Progress Note ---
DATE: Medicine Progress Note SUBJECTIVE: The patient is doing much better today. She still deviates to the left from her stroke. Still pending inpatient rehab. The patient's family has agreed to [facility] for inpatient rehabilitation. PHYSICAL EXAMINATION: VITAL SIGNS: Temperature is 97.3, pulse 65, respiratory rate is 20, blood pressure 131/62, pulse ox 100% on room air. GENERAL: Not in acute distress. Alert and oriented x3. Cooperative on examination. HEENT: Head is normocephalic and atraumatic. Eyes, pupils are equal, round, and reactive to light bilaterally. Extraocular movements intact bilaterally. Throat, no evidence of any erythema, exudates in the posterior pharynx. Has poor dentition. NECK: Supple. Good range of motion. PULMONARY: Clear to auscultation bilaterally. No wheezing, rales, or rhonchi. No crackles appreciated. CARDIOVASCULAR: Positive S1 and S2. No murmurs, rubs, or gallops appreciated. ABDOMEN: Soft, nondistended, and nontender to palpation. Bowel sounds present. MUSCULOSKELETAL: Strength is 5/5 throughout. No evidence of any muscle deficits on examination. No weakness appreciated. NEUROLOGIC: Ataxia. SKIN: Intact. Warm to touch. Good capillary refill. PSYCHIATRIC: Normal affect and mood. EXTREMITIES: No edema. Good range of motion throughout. LABORATORY FINDINGS: Show white count 11.7, hemoglobin 10.8., hematocrit 34, platelets of 379. Chemistry, stable. IMPRESSION: 1. Acute cerebrovascular accident on MRI with underlying ataxia. 2. Uncontrolled type 2 diabetes. 3. Hypertension. 4. Morbid obesity. 5. Hyperlipidemia. 6. Metabolic encephalopathy, resolved. 7. Medical noncompliance. PLAN: At this time, aspirin and statin. Neurology is following closely. Pending inpatient rehabilitation acceptance by the insurance company. Family has made the choice yesterday. Continue to work with PT and OT while here in the hospital stay as well. Carotid ultrasound reviewed and stable. MD ALLISON Heredia/MODL /[id number]
[2019-01-24 16:00] VITALS: BP 120/59
[2019-01-24 20:44] VITALS: BP 137/66
[2019-01-24] MEDS: ATORVASTATIN 40 MG TAB PO SCH (21:00)
[2019-01-25] VITALS (7 sets, daily range): BP systolic 129–156; BP diastolic 61–69
[2019-01-25] MEDS: INSULIN LISPRO 100 UNIT/1 ML 3ML VIAL SQ SCH ×4 (08:30→21:00)
[2019-01-25] MEDS: FAMOTIDINE 20 MG TAB PO SCH ×2 (08:30→17:20)
[2019-01-25] MEDS: FLUOXETINE HCL 20 MG CAP PO SCH (08:40)
[2019-01-25] MEDS: APIXABAN 5 MG TABLET PO SCH ×2 (08:40→17:20)
[2019-01-25] MEDS: OXYBUTYNIN CHLORIDE XL 5 MG TAB PO SCH (08:40)
[2019-01-25] MEDS: GLIPIZIDE 5 MG TAB ER PO SCH (08:40)
[2019-01-25] MEDS: METOPROLOL SUCCINATE 25 MG TAB XL PO SCH (08:40)
[2019-01-25] MEDS: VALSARTAN 160 MG TAB PO SCH (08:40)
[2019-01-25] MEDS: LORATADINE 10 MG TAB PO SCH (08:40)
[2019-01-25] MEDS: VERAPAMIL 100 MG PO SCH (09:00)
--- NOTE | 2019-01-25 10:24 | NUR ---
AMBULATING IN HALLWAY WITH PHYSICAL THERAPIST
--- NOTE | 2019-01-25 10:49 | NUR ---
Called and spoke to Ruby at [facility] [phone]. She states they are still pending medical and financial approval.
--- NOTE | 2019-01-25 12:59 | Progress Note ---
DATE: Medicine Progress Note. SUBJECTIVE: The patient is doing actually much better today with no issues. She has worked with Physical Therapy with no issues. She deviates very slightly to the left according to the staff. No overnight events. OBJECTIVE: VITAL SIGNS: Temperature 96.3, pulse 64, respiratory rate 18, blood pressure 132/65, and pulse ox 100% on room air. GENERAL: Not in acute distress. Alert and oriented x3. Cooperative on examination. HEENT: Head is normocephalic and atraumatic. Eyes; pupils are equal, round, and reactive to light bilaterally. Extraocular movements are intact bilaterally. Throat, no evidence of erythema or exudates in the posterior pharynx. Has poor dentition. NECK: Supple. Good range of motion. PULMONARY: Clear to auscultation bilaterally. No wheezing, no rales, no rhonchi, no crackles appreciated. CARDIOVASCULAR: Positive S1, S2. No murmurs, rubs, or gallops appreciated. ABDOMEN: Soft, nondistended, and nontender to palpation. Bowel sounds present. MUSCULOSKELETAL: Strength is 5/5 throughout. No evidence of any muscle deficits on examination. No weakness appreciated. NEUROLOGICAL: Cranial nerves II through XII grossly intact. No evidence of any neurological deficits on exam. SKIN: Intact. Warm to touch. Good cap refill. PSYCHIATRIC: Normal affect and mood. EXTREMITIES: No edema. Good range of motion throughout. LAB FINDINGS: Show white count 11.7, hemoglobin , hematocrit 34, and platelets of 379. Chemistries, none. IMPRESSION: 1. Acute cerebrovascular accident on MRI with underlying ataxia, improving. 2. Uncontrolled type 2 diabetes. 3. Hypertension. 4. Morbid obesity. 5. Hyperlipidemia. 6. Metabolic encephalopathy, resolved. 7. Medical noncompliance. PLAN: Continue with aspirin, statin, PT, and OT. Neurology is following closely. Pending inpatient rehab acceptance. Continue same plan of care. Get a.m. labs. I discussed the case with the patient and the at bedside. They are insisting on inpatient rehab. If denied, we will have to think of option B, possibly snf or possibly outpatient PT/OT. MD ALLISON Heredia/JAKE Esparza: 01/25/2019 11:08:37 /[id number]
--- NOTE | 2019-01-25 21:35 | NUR ---
NO RESPIRATORY DISTRESS OBSERVE, PATIENT DENIES PAIN. DIABETIC SNACKS GIVEN, CALL LIGHT WITHIN EASY REACH, EDUCATED TO REPOSITION IN BED FREQUENTLY.
[2019-01-25] MEDS: ATORVASTATIN 40 MG TAB PO SCH (21:52)
[2019-01-26] VITALS: BP 149/68
--- NOTE | 2019-01-26 00:53 | NUR ---
PATIENT IS ASLEEP WITH C-PAP ON, NO RESPIRATORY DISTRESS OBSERVED. BED ALARM ON, CALL LIGHT WITHIN EASY REACH, INSTRUCTED TO CALL FOR ASSISTANCE NEEDED.
--- NOTE | 2019-01-26 03:11 | NUR ---
ROUNDS MADE, PATIENT OBSERVED SOUNDLY ASLEEP WITHOUT RESPIRATORY DISTRESS. BED ALARM ON, CALL LIGHT WITHIN EASY REACH.
[2019-01-26 04:00] VITALS: BP 143/65
[2019-01-26 06:20] LABS: BASOPHILS % 0.3 % (0.0-1.0); EOSINOPHILS # (AUTO) 0.2 (0.0-0.4); EOSINOPHILS % 1.9 % (0.0-6.0); HEMATOCRIT 34.1 % (34.2-44.1); HEMOGLOBIN 10.8 g/dL (12.0-16.0); LYMPHOCYTES % 38.8 % (18.0-39.1); MEAN CORPUSCULAR HEMOGLOBIN 27.2 pg (28-32); MEAN CORPUSCULAR HGB CONC 31.7 g/dL (31-35); MEAN CORPUSCULAR VOLUME 85.9 fL (81-99); MONOCYTES % 7.9 % (4.4-11.3); NEUTROPHILS # (AUTO) 6.5 (2.1-6.9); NEUTROPHILS % 50.6 % (38.7-80.0); PLATELET COUNT 354 x10e3/uL (140-360); RED BLOOD COUNT 3.97 x10e6/uL (3.6-5.1); RED CELL DISTRIBUTION WIDTH 14.5 % (11.7-14.4)
[2019-01-26 06:32] LABS: ANION GAP 13.6 mmol/L (8-16); CALCIUM 9.3 mg/dL (8.4-10.2); CREATININE, SERUM 1.22 mg/dL (0.57-1.11); POTASSIUM 4.6 mmol/L (3.5-5.1)
[2019-01-26] MEDS: FAMOTIDINE 20 MG TAB PO SCH ×2 (08:30→17:26)
[2019-01-26] MEDS: INSULIN LISPRO 100 UNIT/1 ML 3ML VIAL SQ SCH ×4 (08:30→21:00)
[2019-01-26 08:50] VITALS: BP 135/63
[2019-01-26] MEDS: VERAPAMIL 100 MG PO SCH (09:00)
[2019-01-26] MEDS: OXYBUTYNIN CHLORIDE XL 5 MG TAB PO SCH (10:00)
[2019-01-26] MEDS: VALSARTAN 160 MG TAB PO SCH (10:00)
[2019-01-26] MEDS: LORATADINE 10 MG TAB PO SCH (10:00)
[2019-01-26] MEDS: APIXABAN 5 MG TABLET PO SCH ×2 (10:00→17:26)
[2019-01-26] MEDS: GLIPIZIDE 5 MG TAB ER PO SCH (10:00)
[2019-01-26] MEDS: METOPROLOL SUCCINATE 25 MG TAB XL PO SCH (10:00)
[2019-01-26] MEDS: FLUOXETINE HCL 20 MG CAP PO SCH (10:00)
[2019-01-26 10:30] VITALS: BP 135/63
--- NOTE | 2019-01-26 10:32 | NUR ---
ENCOURAGED PT TO GET OOB TO SIT IN CHAIR, PT STATES JUST "WALKED WITH THERAPY", CALL LIGHT WITHIN REACH
--- NOTE | 2019-01-26 13:00 | NUR ---
WITH STANDBY ASSIST AND USE OF WALKER, PT AMBULATED TO BATHROOM, VOIDING WITHOUT DIFFICULTY, STANDBY ASSIST TO BS CHAIR, CALL LIGHT WITHIN REACH
--- NOTE | 2019-01-26 14:19 | Progress Note ---
DATE: 01/26/2019 Medicine Progress Note SUBJECTIVE: The patient is doing well today with no complaints. She did work with physical therapy. She is awaiting for inpatient rehab acceptance. OBJECTIVE: VITAL SIGNS: Temperature 97, pulse 64, respiratory rate 18, blood pressure 135/63, pulse ox 95% on room air. GENERAL: No acute distress. Alert and oriented x3. Cooperative on examination HEENT: Head is normocephalic and atraumatic. Eyes; pupils are equal, round, and reactive to light bilaterally. Extraocular movements are intact bilaterally. NECK: Supple. Good range of motion. Throat, no evidence of erythema or exudates in the posterior pharynx. Has poor dentition. PULMONARY: Clear to auscultation bilaterally. No wheezing, no rales, no rhonchi. No crackles appreciated. CARDIOVASCULAR: Positive S1, S2. No murmurs, rubs, or gallops appreciated. ABDOMEN: Soft nondistended, nontender to palpation. Bowel sounds present. MUSCULOSKELETAL: Strength is 5/5 throughout. No evidence of muscle deficits on examination. No weakness appreciated. NEUROLOGICAL: Cranial nerves II through XII grossly intact. No evidence of any neurological deficits on exam. SKIN: Intact. Warm to touch. Good cap refill. PSYCHIATRIC: Normal affect and mood. EXTREMITIES: No edema. Good range of motion throughout. LAB FINDINGS: Show a white count of 12.8, hemoglobin 10.8, hematocrit 34, platelets of 354. Chemistry; sodium 140, potassium 4.6, chloride 101, bicarb 30, anion gap of 13, BUN is 19, creatinine is 1.2, glucose is 140, calcium is 9.3. MICROBIOLOGY: None. IMAGING STUDIES: None. IMPRESSION: 1. Acute cerebrovascular accident on MRI with underlying ataxia, improving. 2. Uncontrolled type 2 diabetes. 3. Hypertension. 4. Morbid obesity. 5. Hyperlipidemia. 6. Metabolic encephalopathy, resolved. 7. Medical noncompliance. PLAN: Continue with aspirin, statin, PT, OT. Neurology following. Pending inpatient rehab acceptance. Continue same plan of care. Medications reviewed and stable. Labs reviewed and stable as well as vital signs. Sahara Posey MD JSIsaias/MODL /[id number]
[2019-01-26 17:21] VITALS: BP 141/65
--- NOTE | 2019-01-26 18:08 | NUR ---
SITTING ON SIDE OF BED, TOLERATED DINNER, CALL LIGHT WITHIN REACH
[2019-01-26 20:00] VITALS: BP 136/65
[2019-01-26] MEDS: ATORVASTATIN 40 MG TAB PO SCH (21:23)
--- NOTE | 2019-01-26 21:40 | NUR ---
PATIENT CONDITION STABLE WITHOUT DISTRESS, SHE DENIES PAIN. CALL LIGHT WITHIN EASY REACH, SHE'S INSTRUCTED TO CALL FOR ASSISTANCE NEEDED.
[2019-01-27] VITALS (7 sets, daily range): BP systolic 127–166; BP diastolic 63–71
--- NOTE | 2019-01-27 01:44 | NUR ---
PATIENT ASSISTED TO THE RESTROOM, SHE'S NOW BACK IN BED WITH BED ALARM ON AND CALL LIGHT WITHIN EASY REACH.
--- NOTE | 2019-01-27 05:04 | NUR ---
PATIENT IS ASLEEP, SHE'S EASY TO AROUSE. SHE DENIES PAIN, NO RESPIRATORY DISTRESS OBSERVED. BED ALARM ON, CALL LIGHT WITHIN EASY REACH.
[2019-01-27] MEDS: INSULIN LISPRO 100 UNIT/1 ML 3ML VIAL SQ SCH ×4 (07:30→21:00)
[2019-01-27] MEDS: FAMOTIDINE 20 MG TAB PO SCH ×2 (07:30→17:40)
[2019-01-27] MEDS: VERAPAMIL 100 MG PO SCH (09:00)
[2019-01-27] MEDS: VALSARTAN 160 MG TAB PO SCH (09:00)
[2019-01-27] MEDS: GLIPIZIDE 5 MG TAB ER PO SCH (09:00)
[2019-01-27] MEDS: LORATADINE 10 MG TAB PO SCH (09:00)
[2019-01-27] MEDS: OXYBUTYNIN CHLORIDE XL 5 MG TAB PO SCH (09:00)
[2019-01-27] MEDS: METOPROLOL SUCCINATE 25 MG TAB XL PO SCH (09:00)
[2019-01-27] MEDS: FLUOXETINE HCL 20 MG CAP PO SCH (09:00)
[2019-01-27] MEDS: APIXABAN 5 MG TABLET PO SCH ×2 (09:00→17:40)
--- NOTE | 2019-01-27 11:18 | Progress Note ---
DATE: 01/27/2019 Medicine Progress Note SUBJECTIVE: The patient is likely doing very well. She is ambulating with PT and OT, very minimal according to the staff for any neurological deficits. She is ambulating well with PT. OBJECTIVE: VITAL SIGNS: Temperature is 97.1, pulse 62, respiratory rate is 16, blood pressure 139/63, and pulse ox is 98% on room air. GENERAL: Not in acute distress. Alert and oriented x3. Cooperative on examination. HEENT: Head is normocephalic and atraumatic. Eyes; pupils are equal, round, and reactive to light bilaterally. Extraocular movements are intact bilaterally. Throat, no evidence of erythema or exudates in the posterior pharynx. Has poor dentition. NECK: Supple. Good range of motion. PULMONARY: Clear to auscultation bilaterally. No wheezing, no rales, no rhonchi, no crackles appreciated. CARDIOVASCULAR: Positive S1, S2. No murmurs, rubs, or gallops appreciated. ABDOMEN: Soft, nondistended, and nontender to palpation. Bowel sounds present. MUSCULOSKELETAL: Strength is 5/5 throughout. No evidence of any muscle deficits on examination. No weakness appreciated. NEUROLOGICAL: Cranial nerves II through XII grossly intact. No evidence of any neurological deficits on exam. SKIN: Intact. Warm to touch. Good cap refill. PSYCHIATRIC: Normal affect and mood. EXTREMITIES: No edema. Good range of motion throughout. LAB FINDINGS: CBC, none. Chemistry, none. IMPRESSION: 1. Acute cerebrovascular accident on MRI with underlying ataxia that is improving. 2. Uncontrolled type 2 diabetes. 3. Hypertension. 4. Morbid obesity. 5. Hyperlipidemia. 6. Metabolic encephalopathy, resolved. 7. Medical noncompliance. PLAN: Continue with aspirin, statin, PT, and OT. Neurology was following. The patient has pending inpatient rehab acceptance. Though the patient is doing very well, the family is insisting on inpatient rehab. She would likely qualify for home PT and OT at best and possibly outpatient PT and OT. Otherwise, we will continue same plan of care and get a.m. labs. MD ALLISON Heredia/JAKE /[id number]
--- NOTE | 2019-01-27 14:10 | NUR ---
Visit made by the Spiritual Care Department Pastoral Visitor, Mary Flowers. PV provided pastoral presence, prayer, communion, hospitality, and supportive listening. Pastoral Visitor informed pt/family of the scope of [employer] [facility] and availability. MARANDA WE[facility] Spiritual Care Department O: [phone] Pager: [phone] ([phone] number calling from)
--- NOTE | 2019-01-27 18:39 | NUR ---
Patient alert and responsive, no c/o pains, no dizziness, no significant neuro deficits, OOB and ambulated in the room, sat on chair for most of the day, tolerated all meds, rounds by attending and blood sugars elevated but controlled, on ISS, call light within reach, will monitor as appetite good, no dysphagia noted.
--- NOTE | 2019-01-27 21:15 | NUR ---
PATIENT CONDITION STABLE, SHE DENIES PAIN. CALL LIGHT WITHIN EASY REACH, INSTRUCTED TO CALL FOR ASSISTANCE NEEDED.
[2019-01-27] MEDS: ATORVASTATIN 40 MG TAB PO SCH (22:05)
[2019-01-28] VITALS: BP 142/70
--- NOTE | 2019-01-28 00:01 | NUR ---
PATIENT IS ASLEEP WITH HER C-PAP ON, NO RESPIRATORY DISTRESS OBSERVED. CALL LIGHT WITHIN EASY REACH, BED ALARM ON.
[2019-01-28 04:00] VITALS: BP 129/70
--- NOTE | 2019-01-28 04:27 | NUR ---
PATIENT IS SOUNDLY ASLEEP WITH C-PAP ON, SHE'S EASY TO AROUSE. NO RESPIRATORY DISTRESS OBSERVED, SHE DENIES PAIN. BED ALARM ON, CALL LIGHT WITHIN EASY REACH.
[2019-01-28 06:46] LABS: BASOPHILS # (AUTO) 0.1 (0.0-0.1); BASOPHILS % 0.4 % (0.0-1.0); EOSINOPHILS # (AUTO) 0.3 (0.0-0.4); EOSINOPHILS % 1.9 % (0.0-6.0); HEMATOCRIT 34.3 % (34.2-44.1); HEMOGLOBIN 10.9 g/dL (12.0-16.0); LYMPHOCYTES # (AUTO) 4.9 (1.0-3.2); LYMPHOCYTES % 35.9 % (18.0-39.1); MEAN CORPUSCULAR HEMOGLOBIN 27.5 pg (28-32); MEAN CORPUSCULAR HGB CONC 31.8 g/dL (31-35); MEAN CORPUSCULAR VOLUME 86.4 fL (81-99); MONOCYTES # (AUTO) 1.1 (0.2-0.8); MONOCYTES % 7.9 % (4.4-11.3); NEUTROPHILS # (AUTO) 7.2 (2.1-6.9); NEUTROPHILS % 53.5 % (38.7-80.0); PLATELET COUNT 380 x10e3/uL (140-360); RED BLOOD COUNT 3.97 x10e6/uL (3.6-5.1); RED CELL DISTRIBUTION WIDTH 14.6 % (11.7-14.4)
[2019-01-28 07:09] LABS: ANION GAP 11.7 mmol/L (8-16); CALCIUM 9.2 mg/dL (8.4-10.2); CREATININE, SERUM 1.25 mg/dL (0.57-1.11); POTASSIUM 4.7 mmol/L (3.5-5.1)
[2019-01-28 08:12] VITALS: BP 134/84
[2019-01-28] MEDS: LORATADINE 10 MG TAB PO SCH (08:22)
[2019-01-28] MEDS: METOPROLOL SUCCINATE 25 MG TAB XL PO SCH (08:22)
[2019-01-28] MEDS: FLUOXETINE HCL 20 MG CAP PO SCH (08:22)
[2019-01-28] MEDS: VALSARTAN 160 MG TAB PO SCH (08:22)
[2019-01-28] MEDS: FAMOTIDINE 20 MG TAB PO SCH ×2 (08:22→17:09)
[2019-01-28] MEDS: OXYBUTYNIN CHLORIDE XL 5 MG TAB PO SCH (08:22)
[2019-01-28] MEDS: APIXABAN 5 MG TABLET PO SCH ×2 (08:22→17:09)
[2019-01-28] MEDS: GLIPIZIDE 5 MG TAB ER PO SCH (08:22)
[2019-01-28] MEDS: INSULIN LISPRO 100 UNIT/1 ML 3ML VIAL SQ SCH ×4 (08:23→21:00)
[2019-01-28 08:35] VITALS: BP 134/65
[2019-01-28] MEDS: VERAPAMIL 100 MG PO SCH (09:00)
--- NOTE | 2019-01-28 10:17 | NUR ---
Called and spoke with Azeb at [facility] [phone]. She stated still pending medical and financial. Gave CM number for nurse Shelby [phone]. CM called and left with callback number.
[2019-01-28] MEDS ORDERED: Apixaban PO (10:24)
--- NOTE | 2019-01-28 14:09 | Progress Note ---
DATE: 01/28/2019 Medicine Progress Note SUBJECTIVE: The patient is doing well today with no other issues. Pending inpatient rehab acceptance. OBJECTIVE: VITAL SIGNS: She is afebrile. Normotensive. Respiratory rate is good. GENERAL: No acute distress. Alert and oriented x3. Cooperative on examination. HEENT: Head is normocephalic and atraumatic. Eyes; pupils are equal, round, and reactive to light bilaterally. Extraocular movements are intact bilaterally. Throat; no evidence of erythema or exudates in the posterior pharynx. Has poor dentition. NECK: Supple. Good range of motion. PULMONARY: Clear to auscultation bilaterally. No wheezing, no rales, no rhonchi, no crackles appreciated. CARDIOVASCULAR: Positive S1, S2. No murmurs, rubs, or gallops appreciated. ABDOMEN: Soft, nondistended, and nontender to palpation. Bowel sounds present. MUSCULOSKELETAL: Strength is 5/5 throughout. No evidence of any muscle deficits on examination. No weakness appreciated. NEUROLOGICAL: Cranial nerves II through XII grossly intact. No evidence of any neurological deficits on exam. SKIN: Intact. Warm to touch. Good cap refill. PSYCHIATRIC: Normal affect and mood. EXTREMITIES: No edema. Good range of motion throughout. LABORATORY DATA: Reviewed and stable. IMPRESSION: 1. Acute cerebrovascular accident seen on MRI with ataxia, improving. 2. Uncontrolled type 2 diabetes. 3. Hypertension. 4. Morbid obesity. 5. Hyperlipidemia. 6. Metabolic encephalopathy. 7. Medical noncompliance. PLAN: At this time, continue with Plavix, statin, PT, OT. Neurology wants Eliquis, which was already started here in the hospital. She will be discharged on Eliquis and Plavix. I am not sure what is the reason for the Plavix, why she was taking it and would she will now continue with that and follow up accordingly with the appropriate physician who had prescribed that medication. Continue work with PT and OT. Still awaiting for inpatient rehab acceptance. If denied, plan is she will go to snf versus home with home PT and OT. MD ALLISON Heredia/JAKE /[id number]
--- NOTE | 2019-01-28 14:12 | NUR ---
NOTIFIED ME EISENBERG REGARDING JULIEN BARBOSA CALLING REGARDING AND UPDATE ON PT STATES . ASKED WHY PT WAS NOT ON ABX FOR A INCREASED WBC COUNT. NO ORDERS FROM MD EISENBERG RECEIVED.
--- NOTE | 2019-01-28 15:38 | NUR ---
Nutrition Screen Note RD Recommendation for Physician: - Decrease calorie restriction to 1600 ADA to promote improved BG control - BG and insulin management per MD - Diet education provided 01/28 Plan of Care: RD following, monitoring for tolerance and adequacy Nutrition reason for involvement: LOS Primary Diagnose(s): Ataxia, CVA PMH: morbid obesity, DM2, HTN CVAs Ht: 59 in Wt: 219.13 lb BMI: 44.3 kg/m2 IBW: [address] Assessment: (01/28) 63 YOF admitted for ataxia and possible CVA. Pt seen today for LOS, pt discussed during am rounds. 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 Pt reports UBW of 219#, no wt loss noted. Pt reports being diabetic for 20 years and denies any previous diet education, per H&P pt non-compliant with disease management. Pt receptive to diet education at time of visit. Pt educated on DM2 nutrition therapy, CHO soiurces, CHO serving sizes, appropriate substitutes, label reading, meal examples, BG monitoring, medication compliance, and skilled nursing complications of non-adherence. Chart reviewed. Labs and meds reviewed, POC Gluc 151-294. Will monitor and continue to follow. Current Diet: 1800 ADA Malnutrition Evaluation (01/28/19) The patient does not meet criteria for a specified degree of malnutrition at this time. Will re-evaluate at follow-up as appropriate. Diet Education Needs Assessment: Diet education indicated, pt receptive 01/28. Learner(s): pt Barriers: none Cultural/Language Modifications: none Readiness: ready Method: handouts, discussion Topics: DM2 nutrition therapy, CHO counting, label reading, health complications of non-adherence Understanding/Compliance: fair Nutrition Care Level: Low Signed: Genesis Turcios RD, LD, CNSC
[2019-01-28 15:49] VITALS: BP 153/68
--- NOTE | 2019-01-28 17:00 | NUR ---
Received YANET Glaser with [facility] regarding intent to deny for inpatient rehab. P2P option available until noon tomorrow. CM spoke with Dr. Breen. She saw pt today and stated that pt needs inpatient rehab, will not be safe to return home. She is willing to do P2P. CM will call and set up P2P tomorrow morning.
[2019-01-28 20:00] VITALS: BP 138/61
[2019-01-28] MEDS: ATORVASTATIN 40 MG TAB PO SCH (20:28)
--- NOTE | 2019-01-28 21:10 | NUR ---
PATIENT RESTING IN BED, NO RESPIRATORY DISTRESS OBSERVED AND SHE DENIES PAIN. BED ALARM ON, CALL LIGHT WITHIN EASY REACH.
[2019-01-29] VITALS (8 sets, daily range): BP systolic 120–150; BP diastolic 50–68
--- NOTE | 2019-01-29 00:40 | NUR ---
PATIENT OBSERVED SLEEPING WITHOUT HER C-PAP; SHE DENIES RESPIRATORY DISTRESS. RESPIRATORY THERAPIST NOTIFY TO PLEASE APPLY THE C-PAP ON THE PATIENT.
--- NOTE | 2019-01-29 03:56 | NUR ---
PATIENT INCONTINENT OF URINE, SHE WAS ASSISTED TO THE REST ROOM TO FRESHEN UP. SHE'S NOW BACK IN BED WITH C-PAP ON, BED ALARM ON AND CALL LIGHT WITHIN EASY REACH.
--- NOTE | 2019-01-29 08:52 | NUR ---
Called and spoke to Miguelina [phone] with [facility] P2P line. P2P set up for Dr. Breen at 4pm today with Dr. Madden. Dr. Breen was notified.
[2019-01-29] MEDS: LORATADINE 10 MG TAB PO SCH (08:55)
[2019-01-29] MEDS: APIXABAN 5 MG TABLET PO SCH ×2 (08:55→17:07)
[2019-01-29] MEDS: GLIPIZIDE 5 MG TAB ER PO SCH (08:55)
[2019-01-29] MEDS: VERAPAMIL 100 MG PO SCH (08:55)
[2019-01-29] MEDS: FAMOTIDINE 20 MG TAB PO SCH ×2 (08:55→17:07)
[2019-01-29] MEDS: FLUOXETINE HCL 20 MG CAP PO SCH (08:55)
[2019-01-29] MEDS: VALSARTAN 160 MG TAB PO SCH ×2 (08:55→13:09)
[2019-01-29] MEDS: METOPROLOL SUCCINATE 25 MG TAB XL PO SCH (08:55)
[2019-01-29] MEDS: OXYBUTYNIN CHLORIDE XL 5 MG TAB PO SCH (08:55)
[2019-01-29] MEDS: INSULIN LISPRO 100 UNIT/1 ML 3ML VIAL SQ SCH ×4 (09:02→21:54)
--- NOTE | 2019-01-29 12:44 | Progress Note ---
DATE: 01/29/2019 Medicine Progress Note SUBJECTIVE: The patient is doing well today with no complaints. We are waiting for inpatient rehab acceptance. LABORATORY DATA: Lab findings show white count is 13, hemoglobin 10.9, hematocrit 34, platelets of 380. Chemistries are normal. PHYSICAL EXAMINATION: VITAL SIGNS: Temperature is 97, pulse 60, respiratory rate 18, blood pressure 120/58, pulse ox 100% on room air. GENERAL: Not in acute distress. Alert and oriented x3. Cooperative on examination. HEENT: Head is normocephalic and atraumatic. Eyes; pupils are equal, round, and reactive to light bilaterally. Extraocular movements are intact bilaterally. Throat, no evidence of erythema or exudates in the posterior pharynx. Has poor dentition. NECK: Supple. Good range of motion. PULMONARY: Clear to auscultation bilaterally. No wheezing, no rales, no rhonchi, no crackles appreciated. CARDIOVASCULAR: Positive S1, S2. No murmurs, rubs, or gallops appreciated. ABDOMEN: Soft, nondistended, and nontender to palpation. Bowel sounds present. MUSCULOSKELETAL: Strength is 5/5 throughout. No evidence of any muscle deficits on examination. No weakness appreciated. NEUROLOGICAL: Cranial nerves II through XII grossly intact. No evidence of any neurological deficits on exam. SKIN: Intact. Warm to touch. Good cap refill. PSYCHIATRIC: Normal affect and mood. EXTREMITIES: No edema. Good range of motion throughout. IMPRESSION: 1. Acute cerebrovascular accident. 2. Type 2 diabetes, uncontrolled. 3. Hypertension. 4. Morbid obesity. 5. Hyperlipidemia. 6. Metabolic encephalopathy. 7. Medical noncompliance. PLAN: Discussed case with Neurology on yesterday. Recommended no Plavix, no aspirin, except only Eliquis. Eliquis has been started. She also wants that to be on discharge and also does not want any Plavix or aspirin on discharge. We are awaiting for inpatient rehab acceptance. Continue with PT and OT. We will continue with same plan of care. If acceptable, we will discharge later today. MD ALLISON Heredia/JAKE /[id number]
--- NOTE | 2019-01-29 16:37 | NUR ---
Dr. Breen did P2P and said they will approve pt for inpatient rehab. RUBIN called and spoke to Shelby, nurse at , and informed her. She is requesting updated clinicals be sent to [phone]. . CM faxed requested clinicals. RUBIN called and left a message with Jailyn in financial as well.
[2019-01-29] MEDS: ATORVASTATIN 40 MG TAB PO SCH (21:50)
--- NOTE | 2019-01-29 22:15 | NUR ---
HELPED ESCORT PATIENT TO TOILET, NOW RESTING IN BED COMFORTABLY, NO DISTRESS, CALL LIGHT WITHIN REACH, WILL CONTINUE TO MONITOR
[2019-01-30] VITALS: BP 167/69
[2019-01-30 04:05] VITALS: BP 106/63
[2019-01-30] MEDS: INSULIN LISPRO 100 UNIT/1 ML 3ML VIAL SQ SCH ×2 (08:30→12:30)
--- NOTE | 2019-01-30 08:46 | NUR ---
Spoke with Jailyn at [facility]. Stated insurance has approved for inpatient rehab so she will clear pt financially. Still pending medical clearance. CM left message for nurse Ryan to call back regarding medical clearance.
[2019-01-30 08:47] VITALS: BP 125/65
[2019-01-30] MEDS: VERAPAMIL 100 MG PO SCH (09:00)
--- NOTE | 2019-01-30 09:00 | NUR ---
SITTING IN BS CHAIR, CALL LIGHT WITHIN REACH
[2019-01-30] MEDS: APIXABAN 5 MG TABLET PO SCH ×2 (09:30→16:07)
[2019-01-30] MEDS: FLUOXETINE HCL 20 MG CAP PO SCH (09:30)
[2019-01-30] MEDS: LORATADINE 10 MG TAB PO SCH (09:30)
[2019-01-30] MEDS: METOPROLOL SUCCINATE 25 MG TAB XL PO SCH (09:30)
[2019-01-30] MEDS: FAMOTIDINE 20 MG TAB PO SCH ×2 (09:30→16:07)
[2019-01-30] MEDS: OXYBUTYNIN CHLORIDE XL 5 MG TAB PO SCH (09:30)
[2019-01-30] MEDS: VALSARTAN 160 MG TAB PO SCH (09:30)
[2019-01-30] MEDS: GLIPIZIDE 5 MG TAB ER PO SCH (09:30)
[2019-01-30 09:50] VITALS: BP 125/65
--- NOTE | 2019-01-30 09:52 | NUR ---
PT EDUCATED TO CALL FOR ASSISTANCE BEFORE GETTING OOB, VERBALIZED UNDERSTANDING, CALL LIGHT WITHIN REACH
--- NOTE | 2019-01-30 11:20 | NUR ---
Received call from Adi Garcia with [facility] with [facility] [id number] [place] [address] - for report Rm 250 Door Admin: Eli Estrella to attend MOT filled out and placed with pt's clinical packet at nurse's station. DC order and DC MAR to be faxed to [phone] YOCASTA Vanegas was notified.
[2019-01-30 12:30] VITALS: BP 132/69
--- NOTE | 2019-01-30 15:00 | NUR ---
KAIDEN WITH MD EISENBERG, MADE AWARE THAT PT HAS GOT A BED, REPORT TO TAYLOR AT [facility], PT SITTING IN CHAIR, CALL LIGHT WITHIN REACH, AT SIDE
--- NOTE | 2019-01-30 15:45 | NUR ---
SPOKE WITH MD ALBERT, MADE AWARE THAT PT HAS A ROOM AND WILL BE TRANSFERRED TO [facility], NO NEW ORDERS
--- NOTE | 2019-01-30 16:15 | NUR ---
AMBULANCE HERE TO TRANSFER PT, NO CHANGE IN CONDITION, AT SIDE
[2019-01-30 16:18] VITALS: BP 141/68
--- NOTE | 2019-01-31 06:34 | Discharge Summary ---
FINAL DISCHARGE DIAGNOSES: 1. Acute cerebrovascular accident, seen on imaging studies. 2. Type 2 diabetes, uncontrolled. 3. Hypertension. 4. Morbid obesity. 5. Hyperlipidemia. 6. Metabolic encephalopathy, resolved. 7. Medical noncompliance. CONSULTANTS: Neurology. PHYSICAL EXAMINATION: VITAL SIGNS: Temperature is 98.8, pulse 73, respiratory rate 18, blood pressure 124/65, and pulse ox 96% on room air. LABORATORY FINDINGS: Show white count 13, hemoglobin 10.9, hematocrit 34, and platelets of 380. Chemistry; sodium is 141, potassium was 4.7, chloride is 102, bicarbonate is 32, BUN is 20, creatinine is 1.25. Hemoglobin A1c 7.1, point of care glucose 152, calcium is 9.2, total bilirubin is 0.6. LFTs were normal. LDL was 80. Lipase level was now 40. Albumin is 3. Urinalysis negative. Microbiology none. IMAGING STUDIES: Chest x-ray was negative. CT brain showed no acute intracranial abnormality, showed some chronic changes seen. Carotid ultrasound showed minimal carotid stenosis. MRI of the brain showed a small acute nonhemorrhagic infarct in posterior limb of the right internal capsule. HOSPITAL COURSE: A 63-year-old female, morbidly obese, type 2 diabetic, uncontrolled and hypertension, came into the ED with stroke-like symptoms, came into the hospital for further evaluation and management. Neurology was consulted. MRI of the brain was consistent with acute CVA. CT brain was found to be negative. The patient worked with PT and OT while here in the hospital. The patient had difficulty with ambulation and had deviation with ataxia during PT. PT recommends inpatient rehab. On further discussion with Neurology, it was felt from Neurology standpoint, the patient will not benefit from Plavix, that she has had multiple strokes in the past on aspirin and Plavix and recommended Eliquis on discharge. The patient was discharged on oral Eliquis and was started here in the hospital on Eliquis as well. The patient improved throughout the hospital course and was transferred to [facility] inpatient rehab facility. On the day of discharge, vital signs were stable, labs reviewed and stable. Patient was seen, evaluated, and examined thoroughly on the day of discharge with no other complaints. The patient verbalized understanding and agreed to plan of care. A followup appointment as an outpatient with primary care physician in 1 week and Neurology in 2 weeks' time. MEDICATIONS: See med reconciliation form. DISPOSITION: [facility] inpatient rehab. CONDITION: Stable. DIET: Heart healthy. In the event of any worsening symptoms, the patient was advised to come back to the ED for further evaluation. Discharge summary took greater than 35 minutes. MD ALLISON Heredia/JAKE /[id number]
== END 2019-01-30 16:26 | DRG 64 ==
LOC: ER 19:19 → ERHOLD 22:10 → MED/SURG 23:39 → OBSVTOIN 01-22 13:11
PROVIDERS: ADMIT Internal Medicine; ATTEND Internal Medicine
DX: I63.9 Cerebral infarction, unspecified (principal); G93.41 Metabolic encephalopathy; Z68.42 Body mass index [BMI] 45.0-49.9, adult; E11.65 Type 2 diabetes mellitus with hyperglycemia; I10 Essential (primary) hypertension; E66.01 Morbid (severe) obesity due to excess calories; Z91.19 Patient's noncompliance with other medical treatment and regimen
CPT/HCPCS: 36415; 70450; 70551; 71045; 80048; 80053; 80061; 81001; 82550; 82553; 82948; 83036; 83690; 83880; 84484; 85025; 92523; 93005; 93306; 93880; 94640; 94660; 96372; 97139; 99284; G0378; J0360; J1644; J7030